=== PATIENT | male | born 1975 | race Caucasian/White ===

== ENCOUNTER 2016-03-25 11:17 | Outpatient (CLI) | payer OTHER | END 2016-03-25 11:18 | disposition home or self-care (01) | DX: G47.30 Sleep apnea, unspecified (principal); G47.8 Other sleep disorders; G47.10 Hypersomnia, unspecified; R06.83 Snoring ==

== ENCOUNTER 2016-04-04 22:24 | Outpatient (CLI) | payer OTHER | END 2016-04-04 22:25 | disposition home or self-care (01) | DX: Z53.9 Procedure and treatment not carried out, unspecified reason (principal) ==

== ENCOUNTER 2016-05-28 19:34 | Outpatient (CLI) | payer OTHER | END 2016-05-28 19:35 | disposition home or self-care (01) | DX: G47.61 Periodic limb movement disorder (principal) ==

== ENCOUNTER 2016-06-17 09:10 | Outpatient (CLI) | payer OTHER | END 2016-06-17 09:11 | disposition home or self-care (01) | DX: R06.83 Snoring (principal); G47.61 Periodic limb movement disorder ==

== ENCOUNTER 2016-07-23 09:29 | Outpatient (CLI) | payer OTHER | END 2016-07-23 09:30 | disposition home or self-care (01) | LOC: SC 09:29 | PROVIDERS: ATTEND Nurse Practitioner Family | DX: G47.30 Sleep apnea, unspecified (principal); R53.83 Other fatigue | CPT/HCPCS: 99212; 99213 ==